=== PATIENT | female | born 2000 | race Native Hawaiian/Other Pacific Islander ===

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

== ENCOUNTER 2019-03-09 15:03 | Outpatient (CLI) | payer OTHER | END 2019-03-09 19:56 | disposition home or self-care (01) | LOC: LABW 15:03 | DX: J02.9 Acute pharyngitis, unspecified (principal) | CPT/HCPCS: 87651 ==

== ENCOUNTER 2019-04-12 05:28 | Emergency (ER) | payer OTHER ==
[~2019-04-12] VITALS: Ht 170.2 cm; Wt 67.1 kg
[2019-04-12 06:20] LABS: PLATELET COUNT 276 K/uL (152-353)
[2019-04-12 06:23] LABS: POTASSIUM 3.7 mmol/L (3.6-5.2)
[2019-04-12 06:47] VITALS: BP 110/62; TEMP 98.3
== END 2019-04-12 06:57 | disposition home or self-care (01) ==
LOC: ED 05:28
PROVIDERS: Emergency Medicine
DX: K52.89 Other specified noninfective gastroenteritis and colitis (principal); E86.0 Dehydration; Z79.2 Long term (current) use of antibiotics
CPT/HCPCS: 80053; 81000; 82150; 83690; 85027; 87077; 87086; 87088; 87186; 96360; 99284

== ENCOUNTER 2022-03-21 09:36 | Emergency (ER) | payer OTHER ==
[~2022-03-21] VITALS: Ht 170.2 cm; Wt 73.5 kg
[2022-03-21 09:42] VITALS: TEMP 97.9
[2022-03-21 10:33] LABS: PLATELET COUNT 294 K/uL (152-353)
[2022-03-21 10:40] LABS: POTASSIUM 3.3 mmol/L (3.6-5.2)
[2022-03-21 13:07] VITALS: BP 101/71
== END 2022-03-21 13:15 | disposition home or self-care (01) ==
LOC: ED 09:36
PROVIDERS: Family Medicine
DX: K52.89 Other specified noninfective gastroenteritis and colitis (principal); E87.6 Hypokalemia
CPT/HCPCS: 80053; 81002; 81025; 82150; 83690; 85027; 96360; 96374; 99284; J2405